=== PATIENT | female | born 1965 | race Caucasian/White ===

== ENCOUNTER 2016-07-17 08:21 | Emergency (ER) | payer OTHER ==
[~2016-07-17] VITALS: Ht 157.5 cm; Wt 50.0 kg
[~2016-07-17 08:21] MED LIST: AMLO5TAB22 PO; METO25 PO; MORP100T40 PO; OXYC1SOL5 PO; PAXI20TA26 PO; PERC10TA27 PO; SPIRCAP INH; XANA0.5T PO
[2016-07-17 08:40] VITALS: BP 127/66; PULSE 98; RESP 16; TEMP 97.9; O2SAT 99
[2016-07-17] MEDS ORDERED: ZOFR4TAB PO (09:16)
[2016-07-17] MEDS ORDERED: PAXI20TA PO (09:16)
[2016-07-17] MEDS ORDERED: PERC7.5T13 PO (09:16)
[2016-07-17] MEDS ORDERED: AMLO10TA2 PO (09:16)
[2016-07-17] MEDS ORDERED: XANA1TAB2 PO (09:16)
[2016-07-17] MEDS ORDERED: METO50TA PO (09:16)
[2016-07-17] MEDS ORDERED: SPIRCAP INH (09:16)
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
[2016-07-17 09:32] LABS: AUTOMATED NEUTROPHIL # 4.3 TH/MM3 (1.8-7.7); BASOPHIL % 0.4 % (0.0-2.0); EOSINOPHIL # 0.1 TH/MM3 (0-0.4); EOSINOPHIL % 1.2 % (0.0-4.0); HEMATOCRIT 39.7 % (35.0-46.0); HEMO FLAGS DIFF FINAL; LYMPH % 29.9 % (9.0-44.0); LYMPHOCYTE # 2.1 TH/MM3 (1.0-4.8); MEAN CELL VOLUME 83.7 FL (80.0-100.0); MEAN CORPUSCULAR HGB CONC 33.4 % (32.0-36.0); MONO % 7.1 % (0.0-8.0); NEUT % 61.4 % (16.0-70.0); PLATELET COUNT 206 TH/MM3 (150-450); RED BLOOD COUNT 4.74 MIL/MM3 (4.00-5.30); RED CELL DISTRIBUTION WIDTH 14.5 % (11.6-17.2)
[2016-07-17 09:56] LABS: ANION GAP 8 MEQ/L (5-15)
[2016-07-17 09:59] LABS: ALKALINE PHOSPHATASE 115 U/L (45-117); ALT (GPT) 47 U/L (10-53); AST (GOT) 28 U/L (15-37); BICARBONATE 29.7 MEQ/L (21.0-32.0); BLOOD UREA NITROGEN 10 MG/DL (7-18); CHLORIDE 106 MEQ/L (98-107); GLOMERULAR FILTRATION RATE 84 ML/MIN (>89); POTASSIUM 3.3 MEQ/L (3.5-5.1); SODIUM (NA) 144 MEQ/L (136-145); TOTAL BILIRUBIN ADULT 0.1 MG/DL (0.2-1.0)
[2016-07-17 11:04] LABS: AMPHETAMINE, URINE NEG (NEG); BARBITURATES, URINE NEG (NEG); COCAINE, URINE POS (NEG)
[2016-07-17] MEDS ORDERED: LORazepam 0.5 MG TAB PO ONE (12:00)
[2016-07-17 12:10] VITALS: BP 154/70; PULSE 98; RESP 18; O2SAT 99
[2016-07-17 13:00] VITALS: BP 178/83; PULSE 110; RESP 18; TEMP 100.1
[2016-07-17] MEDS ORDERED: LORazepam 1 MG TAB PO ONE (13:45)
[2016-07-17 14:06] LABS: BLOOD, URINE NEG (NEG); COMMENT (UR) CULT NOT INDICATED; CULTURE IF INDICATED CULT NOT INDICATED; GLUCOSE,URINE 300 mg/dL (NEG); HYALINE CAST, URINE 1 /lpf (RARE); KETONE, URINE NEG (NEG); MUCUS URINE FEW /lpf (OCC); NITRITE,URINE NEG (NEG); SQUAMOUS EPITHELIAL CELL URINE 4 /hpf (0-5); URINE COLOR LIGHT-YELLOW (YELLW/STRAW)
[2016-07-17 15:15] VITALS: BP 140/70; PULSE 95; RESP 18; TEMP 100; O2SAT 96
[2016-07-17] MEDS ORDERED: CEPHALEXIN MONOHYDRATE 500 MG CAP PO SCH (16:45)
[2016-07-17] MEDS ORDERED: AMOX500C PO (17:59)
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
[2016-07-17] MEDS ORDERED: CEPH-460 PO (18:18)
== END 2016-07-17 18:56 | disposition home or self-care (01) ==
LOC: NEPC 08:21 → NEPJ 18:56
DX: F19.94 Other psychoactive substance use, unspecified with psychoactive substance-induced mood disorder (principal); F10.929 Alcohol use, unspecified with intoxication, unspecified; J45.909 Unspecified asthma, uncomplicated; K21.9 Gastro-esophageal reflux disease without esophagitis; I10 Essential (primary) hypertension; E87.6 Hypokalemia
CPT/HCPCS: 80053; 80307; 81001; 85025; 99283